=== PATIENT | male | born 1990 | race Caucasian/White ===

== ENCOUNTER 2017-04-13 03:08 | Emergency (ER) | payer OTHER ==
[~2017-04-13] VITALS: Ht 188 cm; Wt 77.3 kg
[2017-04-13 03:11] VITALS: BP 134/81; PULSE 87; RESP 20; O2SAT 100
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
[2017-04-13] MEDS ORDERED: Tissue Adhesive Liq (CS Supplied) TOPICAL ONE (03:55)
[2017-04-13 04:28] VITALS: BP 133/77; PULSE 84; RESP 16; O2SAT 100
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
== END 2017-04-13 04:37 | disposition home or self-care (01) ==
LOC: SED 03:08
DX: S01.81XA Laceration without foreign body of other part of head, initial encounter (principal); F11.20 Opioid dependence, uncomplicated; F15.10 Other stimulant abuse, uncomplicated; Y00.XXXA Assault by blunt object, initial encounter; Y93.89 Activity, other specified; Y99.8 Other external cause status; Y92.9 Unspecified place or not applicable; F12.10 Cannabis abuse, uncomplicated